=== PATIENT | male | born 1940 | race Caucasian/White ===

== ENCOUNTER 2016-08-26 16:00 | Outpatient (CLI) | payer MEDICARE, BC | END 2016-08-26 16:01 | disposition home or self-care (01) | DX: R31.9 Hematuria, unspecified (principal) ==

== ENCOUNTER 2017-04-14 15:43 | Outpatient (CLI) | payer MEDICARE, BC ==
--- NOTE | 2017-04-15 10:39 | CT Report ---
CT BRAIN WITHOUT CONTRAST: 04/14/2017 CLINICAL INDICATION: Dementia, history of subdural hematoma. COMPARISON: 11/14/2015 TECHNIQUE: Axial CT images of the brain were obtained without intravenous contrast. In accordance with CT protocol optimization, one or more of the following dose reduction techniques w ere utilized for this exam: automated exposure control, adjustment of mA and/or KV based on patient size, or use of iterative reconstructive technique. FINDINGS: The ventricles and sulci demonstrate mild symmetric enlargement, compatible with atrophy. The basilar cisterns are patent. Previously seen right subdural hematoma has resolved. No new hemo rrhage, mass effect, or midline shift is present. There is mucosal thickening in ethmoid air cells a nd the sphenoid sinus, compatible with chronic sinusitis. IMPRESSION: ATROPHY. CHRONIC SINUSITIS. RESOLUTION OF PREVIOUSLY SEEN RIGHT SUBDURAL HEMATOMA. NO ACUTE HEMORRHAGE. JOB #: [id number] EXT JOB #:[id number]
== END 2017-04-14 15:44 | disposition home or self-care (01) ==
LOC: DI 15:43
PROVIDERS: ATTEND Family Medicine
DX: G31.9 Degenerative disease of nervous system, unspecified (principal); F02.80 Dementia in other diseases classified elsewhere, unspecified severity, without behavioral disturbance, psychotic disturbance, mood disturbance, and anxiety; J32.9 Chronic sinusitis, unspecified
CPT/HCPCS: 70450

== ENCOUNTER 2017-11-04 18:22 | Emergency (ER) | payer MEDICARE, BC ==
[2017-11-04 18:33] VITALS: BP 160/81
--- NOTE | 2017-11-04 18:43 | ED Physician Documentation ---
PD HPI UPPER EXT INJURY - Stated complaint Stated Complaint: RT HAND LAC - Chief complaint Chief Complaint: Laceration - History obtained from History obtained from: Patient - History of Present Illness Location: Right, Hand Type of injury: Other (He suffered a skin tear on part of the couch well getting up just prior to arrival. His tetanus is up-to-date.) Review of Systems Constitutional: reports: Reviewed and negative Cardiac: reports: Reviewed and negative Respiratory: reports: Reviewed and negative PD PAST MEDICAL HISTORY - Past Medical History Cardiovascular: High cholesterol : Benign prostate hypertrophy - Present Medications Home Medications: Ambulatory Orders Medication Instructions Recorded Confirmed Aspirin [Aspir 81] 81 mg PO DAILY 12/17/14 11/14/15 Simvastatin [Zocor] 10 mg PO DAILY 12/17/14 11/14/15 Tamsulosin [Flomax] 0.4 mg PO DAILY 12/17/14 11/14/15 - Allergies Allergies/Adverse Reactions: Allergies Allergy/AdvReac Type Severity Reaction Status Date / Time No Known Drug Allergies Allergy Verified 11/04/17 18:32 - Social History Does the pt smoke?: No Smoking Status: Never smoker Does the pt drink ETOH?: Yes Does the pt have substance abuse?: No - Immunizations Immunizations are current?: No Immunizations: TDAP >10years/unknown PD ED PE NORMAL - Vitals Vital signs reviewed: Yes - General General: Alert and oriented X 3, No acute distress - Extremities Extremities: Other (On the dorsum of the right hand just proximal to the Metacarpal heads there is a very shallow 3 cm skin tear without limited range of motion or neurovascular compromise) - Psych Psych: Normal mood, Normal affect Results - Vitals Vitals: Vital Signs - 24 hr 11/04/17 18:29 Temperature 36.6 C Heart Rate 59 L Respiratory 17 Rate Blood Pressure 160/81 H O2 Saturation 99 Oxygen O2 Source Room air Procedures - Laceration (location) Right hand Length in cm: 3 Wound type: Linear, Flap, Superficial Wound Preparation: Irrigated copiously NS Skin layer closure: Steri strips Other: Tetanus UTD Complexity: Simple Departure - Departure Disposition: 01 Home, Self Care Clinical Impression: Skin tear of right hand without complication Qualifiers: Encounter type: initial encounter Qualified Code(s): S61.411A - Laceration without foreign body of right hand, initial encounter Condition: Good Record reviewed to determine appropriate education?: Yes Instructions: ED Laceration Hand Comments: Your blood pressure was elevated today on check into the emergency department. This does not mean that you have hypertension, it is a common phenomenon to come to the emergency department and have elevated blood pressure. I recommend that you see your primary care physician within the week to have it rechecked when you are feeling better.
== END 2017-11-04 18:51 | disposition home or self-care (01) ==
LOC: ED 18:22
DX: S61.411A Laceration without foreign body of right hand, initial encounter (principal); W45.8XXA Other foreign body or object entering through skin, initial encounter; R03.0 Elevated blood-pressure reading, without diagnosis of hypertension; E78.00 Pure hypercholesterolemia, unspecified; Z79.82 Long term (current) use of aspirin
CPT/HCPCS: 99282; 99283

== ENCOUNTER 2018-08-24 12:05 | Outpatient (CLI) | payer MEDICARE, BC ==
--- NOTE | 2018-08-24 14:21 | XRAY Report ---
Reason: ACUTE BRONCHITIS Procedure Date: 08/24/2018 Accession Number: [id number] / [id number] Procedure: WCP - Chest 2 View X-Ray CPT Code: 95204 FULL RESULT: EXAM: CHEST RADIOGRAPHY EXAM DATE: 08/24/2018 12:19 PM. CLINICAL HISTORY: Acute bronchitis. COMPARISON: None. TECHNIQUE: 2 views. FINDINGS: Lungs/Pleura: No focal opacities evident. No pleural effusion. No pneumothorax. High lung volumes with flattened diaphragms Mediastinum: Heart and mediastinal contours are unremarkable. Other: Old right-sided rib fractures are noted. IMPRESSION: No pneumonia. Likely COPD. RADIA
== END 2018-08-24 12:06 | disposition home or self-care (01) ==
LOC: DI.WCP 12:05
PROVIDERS: ATTEND Family Medicine
DX: J20.9 Acute bronchitis, unspecified (principal)
CPT/HCPCS: 71046

== ENCOUNTER 2019-11-20 10:06 | Emergency (ER) | payer MEDICARE, BC ==
--- NOTE | 2019-11-20 12:09 | ED Physician Documentation ---
PD HPI Fall - Stated complaint Stated Complaint: GLF - Chief complaint Chief Complaint: Trauma Hd/Nk - History obtained from History obtained from: Patient, Family - History of Present Illness Mechanism of injury: Tripped (he says he tripped on curb stone and fell forward, catching self on hands and knees. Denies injury to head/chest/abd. No LOC nor headache. No anticoagulants. Has multiple lacs/abrasions on fingertips and left forearm.) Fall distance: Standing position Where injury occurred: Street Timing - onset: Today Injury(ies) location: Left Uppper Extremity, Right Hand, Left Hand. No: Head, Chest, Abdomen Quality of pain: Aching Associated symptoms: No: LOC, AMS, Amnesia, Weakness, Dyspnea Worsens with: Palpation. No: Movement Contributing factors: No: Anticoagulated, Intoxicated Review of Systems Constitutional: denies: Fever Nose: denies: Rhinorrhea / runny nose, Congestion Throat: denies: Sore throat Respiratory: denies: Cough GI: denies: Vomiting, Diarrhea Skin: reports: Abrasion (s), Laceration (s). denies: Rash Neurologic: reports: Confused (chronic from some dementia). denies: Focal weakness, Numbness, Altered mental status, Headache, Head injury PD PAST MEDICAL HISTORY - Past Medical History Cardiovascular: High cholesterol Neuro: Dementia : Benign prostate hypertrophy - Present Medications Home Medications: Ambulatory Orders Medication Instructions Recorded Confirmed Aspirin [Aspir 81] 81 mg PO DAILY 12/17/14 11/14/15 Simvastatin [Zocor] 10 mg PO DAILY 12/17/14 11/14/15 Tamsulosin [Flomax] 0.4 mg PO DAILY 12/17/14 11/14/15 - Allergies Allergies/Adverse Reactions: Allergies Allergy/AdvReac Type Severity Reaction Status Date / Time No Known Drug Allergies Allergy Verified 11/20/19 10:10 - Social History Does the pt smoke?: No Smoking Status: Never smoker Does the pt drink ETOH?: Yes Does the pt have substance abuse?: No - Immunizations Immunizations are current?: No Immunizations: TDAP >10years/unknown PD ED PE NORMAL - Vitals Vital signs reviewed: Yes - General General: Alert and oriented X 3, Well developed/nourished, Other (holding out fingertips to not palpate on any of them. ) - HEENT HEENT: Atraumatic, PERRL, Moist mucous membranes - Neck Neck: Supple, no meningeal sign, No bony TTP, No adenopathy - Cardiac Cardiac: RRR, No murmur - Respiratory Respiratory: Clear bilaterally - Abdomen Abdomen: Soft, Non tender - Back Back: No CVA TTP, No spinal TTP - Derm Derm: Normal color, Warm and dry - Extremities Extremities: Other (left lateral elbow and ulnar side forearm with deep abrasion/thin avulsions with skin missing. Then most all the fingertips have either contusions with some bruising or thin partial thickness skin flaps, not involving nailbeds. No FB nor dirt noted in them. Minimal oozing blood. Good ROM of the fingers with flex/ext at IP joints without deformity. No noted bony deformities.) - Neuro Neuro: No motor deficit, No sensory deficit Results - Vitals Vitals: Vital Signs - 24 hr 11/20/19 11/20/19 10:11 13:17 Temperature 36.7 C 36.8 C Heart Rate 74 70 Respiratory 18 16 Rate Blood Pressure 142/85 H 141/70 H O2 Saturation 95 96 Oxygen O2 Source Room air PD MEDICAL DECISION MAKING - ED course Complexity details: reviewed results (he did not feel he had any hand/finger fractures, so shareged decision is to defer xrays.), considered differential (multiple thin skin tears on right fingertips, left forearm and left elbow, left fingertip as well. All are thin skin with bruising, so not sutureable. Had nursing apply steri-strips and then dressing after cleansing. ), d/w patient Departure - Departure Disposition: 01 Home, Self Care Clinical Impression: Skin tear Accidental fall Qualifiers: Encounter type: initial encounter Qualified Code(s): W19.XXXA - Unspecified fall, initial encounter Condition: Stable Record reviewed to determine appropriate education?: Yes Instructions: ED Laceration Hand Follow-Up: Jose Boggs MD [Primary Care Provider] - Comments: Just good wound care of the wounds. I would leave the initial dressings on actually for a day or 2 and then start just gently cleaning with soap and water and applying Band-Aids or such. Dry dressing over the forearm skin tears with concern of a Band-Aid sticking too much to the skin. Tylenol if needed for pains. Recheck if signs of infections. Discharge Date/Time: 11/20/19 13:20
[2019-11-20 13:18] VITALS: BP 141/70
== END 2019-11-20 13:20 | disposition home or self-care (01) ==
LOC: ED 10:06
DX: S51.812A Laceration without foreign body of left forearm, initial encounter (principal); S51.012A Laceration without foreign body of left elbow, initial encounter; S61.219A Laceration without foreign body of unspecified finger without damage to nail, initial encounter; S60.419A Abrasion of unspecified finger, initial encounter; S60.00XA Contusion of unspecified finger without damage to nail, initial encounter; W01.0XXA Fall on same level from slipping, tripping and stumbling without subsequent striking against object, initial encounter; Y93.01 Activity, walking, marching and hiking; Y92.480 Sidewalk as the place of occurrence of the external cause; F03.90 Unspecified dementia, unspecified severity, without behavioral disturbance, psychotic disturbance, mood disturbance, and anxiety; Z79.82 Long term (current) use of aspirin
CPT/HCPCS: 99282; 99284

== ENCOUNTER 2020-06-13 08:00 | Outpatient (CLI) | payer MEDICARE, BC | END 2020-06-13 23:59 | disposition home or self-care (01) | LOC: LAB.WCP 08:00 | PROVIDERS: ATTEND Internal Medicine | DX: Z53.9 Procedure and treatment not carried out, unspecified reason (principal) ==

== ENCOUNTER 2020-07-02 09:14 | Outpatient (CLI) | payer MEDICARE, BC ==
--- NOTE | 2020-07-02 10:44 | MRI Report ---
PROCEDURE: Brain W/O INDICATIONS: SENILE DEMENTIA TECHNIQUE: Noncontrast axial T1 spin echo, axial T2 fast spin echo, sagittal and axial FLAIR, coronal T2 fast sp in echo, axial gradient echo, axial diffusion and ADC through the brain. COMPARISON: None. FINDINGS: Image quality: Excellent. CSF Spaces: Basal cisterns are patent. No extra-axial fluid collections. Ventricles are normal in size and shape. Brain: No intracranial masses or hemorrhage. Pham/white matter interface is normal. Moderate diffu se cerebral volume loss. Mild degree of patchy high FLAIR signal within the periventricular and subco rtical white matter. Brainstem appears normal. Diffusion-weighted images demonstrate no acute ischem ic insult. No chronic ischemic insults. Normal intravascular flow voids are present. Skull and face: Calvarium has normal marrow signal. Orbits appear normal. Sinuses: Mastoids are clear. Severe left maxillary sinus mucosal thickening which demonstrates an air -fluid level. Small right maxillary sinus retention cyst. Mild minimal mucosal thickening in the bila teral ethmoidal cells. IMPRESSION: 1. Volume loss and small vessel ischemic disease. 2. No acute process. No recent infarct. 3. Sinus disease. Reviewed by: Elizabeth Sanchez MD on 07/02/2020 10:43 AM PST Approved by: Elizabeth Sanchez MD on 07/02/2020 10:43 AM PST Station ID: [id number]
== END 2020-07-02 09:15 | disposition home or self-care (01) ==
LOC: DI 09:14
PROVIDERS: ATTEND Internal Medicine
DX: I67.82 Cerebral ischemia (principal); J34.1 Cyst and mucocele of nose and nasal sinus; J32.2 Chronic ethmoidal sinusitis; J32.0 Chronic maxillary sinusitis
CPT/HCPCS: 70551

== ENCOUNTER 2020-07-12 12:26 | Outpatient (CLI) | payer MEDICARE, BC ==
--- NOTE | 2020-07-12 16:40 | CARDIAC PROCEDURE NOTE ---
DATE OF SERVICE: 07/12/2020 Physician: Elinor Barry MD, [facility] INDICATION: Atypical chest pain. CARDIAC RISK FACTORS: Advanced age, male gender. PROCEDURE: After signing informed consent, the patient underwent a Mark- protocol treadmill stress test with nuclear myocardial perfusion imaging. RESTING HEART RATE: 55. PEAK HEART RATE: 136 (97% predicted maximum heart rate for age). RESTING BLOOD PRESSURE: 136/80. PEAK BLOOD PRESSURE: 171/92. The patient exercised for 3 minutes and 47 seconds on a Mark-protocol treadmill stress test. He achieved a peak heart rate of 136 (during PSVT), which is 97% PMHR and 5.56 METs. The patient developed mild to moderate shortness of breath and described fatigue and the exercise was stopped. The patient had no chest pain during this test. Oxygen saturation was 97%-98% on room air throughout the test. RESTING EKG: Sinus bradycardia, IVCD, early R/S transition, low voltage in the limb leads. EKG AT PEAK: Rare PVCs, frequent PACs, 3-4 beat runs of SVT. There was excessive baseline artifact making ST-segment and T-wave interpretation difficult in immediate recovery. After 27 seconds to 1 minute of recovery, the EKG showed [address] segment depressions in leads II, III, aVF, and V3 through V6. SUMMARY: 1. Abnormal resting EKG. 2. Fair to poor exercise tolerance. 3. No chest pain occurred during exercise. 4. Nonspecific EKG changes occurred with exercise. 5. Frequent PAC's and short runs of SVT at rates of 130-140 were seen at peak and after exercise. 6. Nuclear images were reported separately and showed: Small, reversible perfusion defect in the inferior septum. IMPRESSION: Abnormal stress test. RECOMMENDATIONS: 1. Consider Holter monitor for evaluation of arrhythmias. 2. Cardiology referral, and consideration for coronary angio. 3. Start 1 aspirin daily. Manage lipids if necessary. 4. Also consider evaluation for GERD, given that his symptoms occur after dinner as he is going to bed. cc: Alan Hurtado MD TD: 07/12/2020 16:22 MTDD
--- NOTE | 2020-07-12 17:25 | Nuclear Medicine Report ---
PROCEDURE: Rest and exercise myocardial perfusion SPECT with gated imaging and ejection fraction INDICATIONS: CHEMA - CHEST DISCOMFORT RADIOPHARMACEUTICAL: 17.8 mCi Tc-99m Myoview IV at rest and 48.2 mCi Tc-99m Myoview IV at peak exerc ise. [id number] was performed. TECHNIQUE: Radiopharmaceutical was injected at peak stress test, and also at rest. SPECT images wer e obtained. SPECT myocardial perfusion images were displayed in short axis, horizontal long axis, an d vertical long axis views. Gated images were reviewed using Auto[employer] software. COMPARISON: None available. FINDINGS: Raw data: There is good myocardial labeling by radiotracer. No significant motion artifacts. Lung- to-heart ratio is 0.26 (normal is less than 0.38 for tetrafosmin tracer). Left ventricle function: Gated images demonstrate normal left ventricle wall thickening. No segment al wall motion abnormality. No transient ischemic dilation; TID is 0.80 (normal less than 1.3). The left ventricle resting end-diastolic volume is normal. Left ventricle stress ejection fraction is g reater than 70%; normal values are above 45%. Myocardial perfusion: There is a small, mild, reversible perfusion defect in the inferior septum mason picious for myocardial ischemia. IMPRESSION: 1. Probably abnormal myocardial perfusion images. There is a small, mild, reversible perfusion defect in the anterior septum, suspicious for myocardial ischemia. 2. Normal left ventricular volume and systolic function. 3. Please correlate with stress EKG report. PQRS ATTESTATIONS: Measure 322 - Is this imaging test primarily performed on a low-risk surgery patient for preoperative evaluation within 30 days preceding their low-risk non-cardiac surgery? Low-risk surgery is defined as cardiac or myocardial infarction less than 1%, including (but not limited to) endoscopic pr ocedures, superficial procedures, cataract surgery, and excisional breast surgery: Answer: No Measure 323 - Is this imaging test performed primarily for the monitoring of an asymptomatic patient who had percutaneous coronary intervention on the visit date or within 2 years of the visit date? An swer: No Measure 324 - Is this imaging test performed primarily for the initial detection and risk assessment on an asymptomatic, low coronary heart disease patient? Low CHD risk definition = clinicians should consider the maximum number of available patient factors used to estimate risk based on Mcclure (A TP III criteria), typically age, gender, diabetes, smoking status, and use of blood pressure medicati on, and integrate age appropriate estimates for missing elements, such as LDL or standard blood press ure. Answer: No Reviewed by: Karen Souza MD on 07/12/2020 5:24 PM PST Approved by: Karen Souza MD on 07/12/2020 5:24 PM PST Station ID: [id number]
== END 2020-07-12 12:27 | disposition home or self-care (01) ==
LOC: DI 12:26
PROVIDERS: ATTEND Internal Medicine
DX: R07.89 Other chest pain (principal); R94.31 Abnormal electrocardiogram [ECG] [EKG]
CPT/HCPCS: 78452; 93017; A9500

== ENCOUNTER 2021-08-16 09:59 | Outpatient (CLI) | payer MEDICARE, BC ==
[2021-08-16 13:50] LABS: BASOPHILS # (AUTO) 0.1 10^3/uL (0.0-0.1); BASOPHILS % (AUTO) 0.8 %; EOSINOPHILS # (AUTO) 0.2 10^3/uL (0.0-0.7); EOSINOPHILS % (AUTO) 2.7 %; HCT - HEMATOCRIT 42.9 % (42.0-52.0); HGB - HEMOGLOBIN 14.1 g/dL (14.0-18.0); LYMPHOCYTES # (AUTO) 2.1 10^3/uL (1.5-3.5); LYMPHOCYTES % (AUTO) 28.8 %; MEAN CORPUSCULAR HEMOGLOBIN 32.9 pg (27.0-31.0); MEAN CORPUSCULAR HGB CONC 32.9 g/dL (32.0-36.0); MEAN CORPUSCULAR VOLUME 100.2 fL (80.0-94.0); MEAN PLATELET VOLUME 10.7 fL (7.4-11.4); MONOCYTES # (AUTO) 0.7 10^3/uL (0.0-1.0); MONOCYTES % (AUTO) 9.6 %; NEUTROPHILS # (AUTO) 4.2 10^3/uL (1.5-6.6); NEUTROPHILS % (AUTO) 57.7 %; PLT - PLATELET COUNT 216 10^3/uL (130-450); RED BLOOD COUNT 4.28 10^6/uL (4.70-6.10); RED CELL DISTRIBUTION WIDTH 13.3 % (12.0-15.0); WHITE BLOOD COUNT 7.3 x10^3/uL (4.8-10.8)
[2021-08-16 14:24] LABS: BILIRUBIN,URINE NEGATIVE (NEGATIVE); GLUCOSE, URINE (UA) NEGATIVE (NEGATIVE); KETONES,URINE (UA) NEGATIVE (NEGATIVE); LEUKOCYTE ESTERASE, URINE NEGATIVE (NEGATIVE); NITRITE,URINE NEGATIVE (NEGATIVE); OCCULT BLOOD,URINE NEGATIVE (NEGATIVE); PROTEIN,URINE NEGATIVE (NEGATIVE); UROBILINOGEN,URINE 0.2 (NORMAL) E.U./dL (NORMAL)
[2021-08-16 14:29] LABS: ALBUMIN 4.2 g/dL (3.2-5.5); ALBUMIN/GLOBULIN RATIO 1.3 (1.0-2.2); BILIRUBIN,TOTAL 1.3 mg/dL (0.2-1.0); CALCIUM 9.3 mg/dL (8.5-10.3); CREATININE 1.1 mg/dL (0.6-1.2); POTASSIUM 4.4 mmol/L (3.5-5.0); TOTAL PROTEIN 7.4 g/dL (6.7-8.2)
[2021-08-16 14:34] LABS: THYROID STIMULATING HORMONE 3.26 uIU/mL (0.34-5.60)
[2021-08-16 14:46] LABS: BACTERIA,URINE None Seen /HPF (None Seen); CLARITY,URINE CLEAR (CLEAR); RBC,URINE None Seen /HPF (0-5); SQUAMOUS EPITHELIAL CELL,UR RARE Squamous (<= Few); WBC,URINE 0-3 /HPF (0-3)
== END 2021-08-16 10:00 | disposition home or self-care (01) ==
LOC: LAB.N 09:59
PROVIDERS: ATTEND Internal Medicine
DX: F01.51 Vascular dementia, unspecified severity, with behavioral disturbance (principal); N40.0 Benign prostatic hyperplasia without lower urinary tract symptoms; E78.5 Hyperlipidemia, unspecified
CPT/HCPCS: 36415; 80053; 81001; 84443; 85025; 87086

== ENCOUNTER 2021-09-15 15:42 | Outpatient (CLI) | payer MEDICARE, BC ==
[2021-09-15 18:09] LABS: BASOPHILS # (AUTO) 0.1 10^3/uL (0.0-0.1); BILIRUBIN,URINE NEGATIVE (NEGATIVE); EOSINOPHILS # (AUTO) 0.2 10^3/uL (0.0-0.7); EOSINOPHILS % (AUTO) 3.2 %; GLUCOSE, URINE (UA) NEGATIVE (NEGATIVE); HCT - HEMATOCRIT 39.2 % (42.0-52.0); KETONES,URINE (UA) NEGATIVE (NEGATIVE); LEUKOCYTE ESTERASE, URINE NEGATIVE (NEGATIVE); LYMPHOCYTES # (AUTO) 1.7 10^3/uL (1.5-3.5); LYMPHOCYTES % (AUTO) 28.7 %; MEAN CORPUSCULAR HEMOGLOBIN 32.6 pg (27.0-31.0); MEAN CORPUSCULAR HGB CONC 33.2 g/dL (32.0-36.0); MEAN CORPUSCULAR VOLUME 98.2 fL (80.0-94.0); MEAN PLATELET VOLUME 10.7 fL (7.4-11.4); MONOCYTES # (AUTO) 0.6 10^3/uL (0.0-1.0); MONOCYTES % (AUTO) 10.8 %; NEUTROPHILS # (AUTO) 3.3 10^3/uL (1.5-6.6); NEUTROPHILS % (AUTO) 56.1 %; NITRITE,URINE NEGATIVE (NEGATIVE); OCCULT BLOOD,URINE NEGATIVE (NEGATIVE); PLT - PLATELET COUNT 193 10^3/uL (130-450); PROTEIN,URINE NEGATIVE (NEGATIVE); RED BLOOD COUNT 3.99 10^6/uL (4.70-6.10); RED CELL DISTRIBUTION WIDTH 13.2 % (12.0-15.0); UROBILINOGEN,URINE 0.2 (NORMAL) E.U./dL (NORMAL); WHITE BLOOD COUNT 5.9 x10^3/uL (4.8-10.8)
[2021-09-15 18:17] LABS: CLARITY,URINE CLEAR (CLEAR)
[2021-09-15 18:43] LABS: ALBUMIN 4.3 g/dL (3.2-5.5); ALBUMIN/GLOBULIN RATIO 1.5 (1.0-2.2); BILIRUBIN,TOTAL 0.9 mg/dL (0.2-1.0); CALCIUM 9.2 mg/dL (8.5-10.3); CREATININE 0.8 mg/dL (0.6-1.2); POTASSIUM 4.4 mmol/L (3.5-5.0); TOTAL PROTEIN 7.1 g/dL (6.7-8.2)
[2021-09-15 18:59] LABS: THYROID STIMULATING HORMONE 3.21 uIU/mL (0.34-5.60)
[2021-09-15 19:21] LABS: BACTERIA,URINE None Seen /HPF (None Seen); RBC,URINE 0-5 /HPF (0-5); SQUAMOUS EPITHELIAL CELL,UR NONE SEEN (<= Few); WBC,URINE 0-3 /HPF (0-3)
== END 2021-09-15 15:43 | disposition home or self-care (01) ==
LOC: LAB.N 15:42
PROVIDERS: ATTEND Nurse Practitioner
DX: R53.83 Other fatigue (principal); R06.02 Shortness of breath
CPT/HCPCS: 36415; 80053; 81001; 83880; 84443; 85025; 85379; 87086

== ENCOUNTER 2021-09-15 19:00 | Emergency (ER) | payer MEDICARE, BC ==
[2021-09-15 21:07] LABS: INR 1.1 (0.8-1.2); PT - PROTHROMBIN TIME 11.9 secs (9.9-12.6)
--- NOTE | 2021-09-15 21:39 | ED Physician Documentation ---
History of Present Illness - Stated complaint Stated Complaint: SWELLING IN STOMACH AND LEGS - Chief complaint Chief Complaint: General - History obtained from History obtained from: Patient, Family (Patient's ) - Additonal information Additional information: Patient with a history of dementia presenting for evaluation of abnormal outpatient lab, D-dimer. Patient was recently seen In the outpatient setting for 3 day history of lower extremity swelling and abdominal bloating. Labs were done today which included a D-dimer which was noted to be elevated. Patient received a phone call instructing him to go to the emergency department for evaluation of the elevated D-dimer. Patient denies fever, cough, chest pain, difficulty breathing, pain.He is unsure of how long he has had the leg swelling but his has noticed it for the last several days.Denies any recent trauma or injury. Patient reports normal urination. Review of Systems Constitutional: denies: Fever Nose: denies: Rhinorrhea / runny nose, Congestion Cardiac: denies: Chest pain / pressure Respiratory: denies: Dyspnea, Cough GI: reports: Abdominal Swelling. denies: Abdominal Pain, Nausea, Vomiting : denies: Dysuria, Unable to Void Musculoskeletal: reports: Extremity swelling Neurologic: denies: Generalized weakness PD PAST MEDICAL HISTORY - Past Medical History Past Medical History: Yes Cardiovascular: High cholesterol Respiratory: None Neuro: Dementia Endocrine/Autoimmune: None GI: None : Benign prostate hypertrophy HEENT: None Psych: None Musculoskeletal: None Derm: None - Past Surgical History Past Surgical History: Yes General: Other - Present Medications Home Medications: Ambulatory Orders Medication Instructions Recorded Confirmed Aspirin [Aspir 81] 81 mg PO DAILY 12/17/14 09/15/21 Risperidone [Risperdal] 0.5 mg PO DAILY 09/15/21 09/15/21 Risperidone [Risperdal] 2 mg PO HS 09/15/21 09/15/21 - Allergies Allergies/Adverse Reactions: Allergies Allergy/AdvReac Type Severity Reaction Status Date / Time No Known Drug Allergies Allergy Verified 09/15/21 19:21 - Social History Does the pt smoke?: No Smoking Status: Never smoker Does the pt drink ETOH?: Yes Does the pt have substance abuse?: No - Immunizations Immunizations are current?: No Immunizations: TDAP >10years/unknown - POLST Patient has POLST: No PD ED PE NORMAL - General General: Alert and oriented X 3, No acute distress, Well developed/nourished - HEENT HEENT: Atraumatic, Moist mucous membranes - Neck Neck: Supple, no meningeal sign - Cardiac Cardiac: RRR, Strong equal pulses - Respiratory Respiratory: No respiratory distress, Clear bilaterally - Abdomen Abdomen: Normal bowel sounds, Soft, Non tender, Non distended - Derm Derm: Normal color, Warm and dry - Extremities Extremities: No tenderness to palpate, Other (Bilateral lower extremity edema, Symmetric, palpable distal pulses). No: No edema - Neuro Neuro: No motor deficit, No sensory deficit, Normal speech - Psych Psych: Normal mood, Normal affect Results - Vitals Vitals: Vital Signs - 24 hr 09/15/21 09/15/21 09/15/21 19:15 20:28 21:20 Temperature 36.1 C L Heart Rate 73 71 67 Respiratory 16 19 20 Rate Blood Pressure 153/60 H 132/69 H 135/72 H O2 Saturation 99 100 100 09/15/21 09/15/21 09/15/21 21:46 22:06 22:27 Temperature Heart Rate 66 70 Respiratory 19 19 20 Rate Blood Pressure 123/69 119/72 O2 Saturation 100 99 100 09/15/21 22:37 Temperature Heart Rate Respiratory 18 Rate Blood Pressure O2 Saturation Oxygen O2 Source Room air - EKG (time done) 2144 Rate: Rate (enter#) (65) Rhythm: NSR Other comments: Other comments (Motion artifact in several leads affects interpretation But do not see acute ischemic changes) Computer interpretation: Disagree with computer (Machine read as ACUTE PR - likely from motion artifact ) - Labs Labs: Laboratory Tests 09/15/21 09/15/21 20:52 20:52 PT 11.9 INR 1.1 Troponin I High Sens 5.5 PD MEDICAL DECISION MAKING - ED course ED course: Patient sent into the emergency department for evaluation of abnormal D-dimer in the setting of recent lower extremity swelling.Patient's lower extremity swelling is symmetric, does not appear to be cellulitic.Normal distal perfusion. Ultrasound obtained which was negative for DVT. Outpatient labs from earlier today were also reviewed which included unremarkable BNP and electrolytes and renal function. Patient denies chest pain or difficulty breathing. PatientHas no respiratory symptoms, Has normal oxygenation and heart rate. I do not think he has symptoms to suggest a pulmonary embolism.His D-dimer is Likely elevated due to other causes. His EKG did not show evidence of acute ischemic changes. Patient's also stated that his abdomen appeared distended. However on exam it was relatively soft and did not Have tenderness. I do not think he needs a paracentesis or abdominal imaging.Patient was advised to follow-up with his primary care doctor.Discussed options for conservative management of the lower extremity edema. Reviewed return precautions with patient and his . Departure - Departure Disposition: 01 Home, Self Care Clinical Impression: Swelling of both lower extremities Condition: Stable Instructions: ED Edema Legs Bilateral Comments: Please follow-up with your primary care doctor regarding the swelling in your legs. You can try compression stockings or elevating the legs to help with the swelling.Your doctor may also start you on a medication to help Remove fluid from your legs. The ultrasound of your legs did not show a blood clot.Please return to the emergency department if you develop pain somewhere, difficulty breathing, Worsening swelling or with any concerns. Discharge Date/Time: 09/15/21 22:42
--- NOTE | 2021-09-15 22:04 | Ultrasound Report ---
PROCEDURE: Duplex Ext Veins Bilateral INDICATIONS: Bilateral lower extremity edema. TECHNIQUE: Real-time imaging, as well as color and pulse Doppler interrogation, were performed of the deep veins of both legs from the inguinal ligament to the popliteal fossa. COMPARISON: None FINDINGS: The deep veins of the right and left lower extremities are normally compressible, and free of intraluminal thrombus. Color and pulse Doppler demonstrate normal phasic intravascular flow in t he deep veins of the right and left lower extremities. There is normal augmentation response to dist al compression maneuver in the deep veins of the right and left lower extremities. Large, bilobed right popliteal cyst. IMPRESSION: No evidence of deep vein thrombosis involving the right and left lower extremities. Reviewed by: Gia Celis MD, PhD on 09/15/2021 10:03 PM PDT Approved by: Gia Celis MD, PhD on 09/15/2021 10:03 PM PDT Station ID: [id number]
[2021-09-15 22:27] VITALS: BP 119/72
== END 2021-09-15 22:42 | disposition home or self-care (01) ==
LOC: ED 19:00
DX: R06.00 Dyspnea, unspecified (principal); R53.83 Other fatigue; R06.02 Shortness of breath
CPT/HCPCS: 36415; 80053; 81001; 83880; 84443; 84484; 85025; 85379; 85610; 87086; 93005; 93970; 99282; 99284

== ENCOUNTER 2023-06-05 06:01 | Outpatient (CLI) | payer MEDICARE, BC | END 2023-06-05 23:59 | disposition critical access hospital (66) | LOC: EMS 06:01 | DX: S01.81XA Laceration without foreign body of other part of head, initial encounter (principal); W19.XXXA Unspecified fall, initial encounter; Y92.092 Bedroom in other non-institutional residence as the place of occurrence of the external cause | CPT/HCPCS: A0425; A0429 ==

== ENCOUNTER 2023-06-05 06:19 | Emergency (ER) | payer MEDICARE, BC ==
--- NOTE | 2023-06-05 07:11 | ED Physician Documentation ---
PD HPI HEAD INJURY - Stated complaint Stated Complaint: FALL/FOREHEAD LAC - Chief complaint Chief Complaint: Trauma Hd/Nk - History obtained from History obtained from: EMS, Caregiver - History of Present Illness Mechanism of head injury: Fell (unwitnessed fall but found by caregivers on laurence with forehead laceration. Unknown if LOC but pt awake and answering questions on first assessment by caregivers. No vomiting. Denies general headache.) Where head injury occurred: Other (SNF caregivers) Timing - onset: How many hours ago (within the past couple of hours), Today Location of injury: Front (left forehead) Quality of pain: Aching Associated symptoms: No: AMS, Nausea / vomiting, Neck pain Symptoms worsen with: Palpation Contributing factors: No: Anticoagulated Similar symptoms before: No diagnosis (family members state patient has had some falls rcently due to dementia and his poor memory of not being able to get up well on own and needing to ask for help.) Recently seen: Not recently seen Review of Systems Unable to obtain: Dementia, Other (family mmebers give some info) Respiratory: denies: Dyspnea, Cough GI: denies: Vomiting, Diarrhea Neurologic: reports: Generalized weakness PD PAST MEDICAL HISTORY - Past Medical History Cardiovascular: High cholesterol Respiratory: None Neuro: Dementia Endocrine/Autoimmune: None GI: None : Benign prostate hypertrophy HEENT: None Psych: None Musculoskeletal: None Derm: None - Past Surgical History Past Surgical History: Yes General: Other - Present Medications Home Medications: Ambulatory Orders Medication Instructions Recorded Confirmed Acetaminophen [Acetaminophen Extra 500 mg PO BID 06/05/23 06/05/23 Strength] Acetaminophen [Tylenol] 500 mg PO Q4HR PRN MDD 3000 06/05/23 06/05/23 Citalopram Hydrobromide [Celexa] 20 mg PO DAILY 06/05/23 06/05/23 Furosemide [Lasix] 40 mg PO DAILY 06/05/23 06/05/23 Ketoconazole [Nizoral A-D] 125 ml TP UD 06/05/23 06/05/23 LORazepam [Ativan] 0.5 mg PO Q8HR PRN 06/05/23 06/05/23 Nitroglycerin [Nitrostat] 0.4 mg SL [id number] PRN 06/05/23 06/05/23 QUEtiapine [SEROquel] 25 mg PO BID 06/05/23 06/05/23 guaiFENesin [Guaifenesin ER] 600 mg PO Q8HR PRN 06/05/23 06/05/23 metroNIDAZOLE 0.75% GEL [Flagyl 1 applic TOP BID 06/05/23 06/05/23 Gel] - Allergies Allergies/Adverse Reactions: Allergies Allergy/AdvReac Type Severity Reaction Status Date / Time No Known Drug Allergies Allergy Verified 06/05/23 06:29 - Social History Does the pt smoke?: No Smoking Status: Never smoker Does the pt drink ETOH?: Yes Does the pt have substance abuse?: No - Immunizations Immunizations are current?: No Immunizations: TDAP >10years/unknown - POLST Patient has POLST: No PD ED PE NORMAL - Vitals Vital signs reviewed: Yes - General General: No acute distress, Well developed/nourished, Other (oriented to person and place, not time and does not remember circumstances of his fall. ) - HEENT HEENT: PERRL, EOMI, Other (left side forehead with 2 lacerations next to each ofther with crisp edges and mild bleeeding. No FBs noted. ) - Neck Neck: Supple, no meningeal sign, No bony TTP, No adenopathy - Cardiac Cardiac: RRR - Respiratory Respiratory: Clear bilaterally, Other (no chestwall tenderness) - Abdomen Abdomen: Soft, Non tender - Derm Derm: Normal color, Warm and dry - Extremities Extremities: Normal ROM s pain, Other (some tenderness with small abrasion left elbow. Good ROM and no effusion nor bony tenderness. ) - Neuro Neuro: No motor deficit, No sensory deficit, Normal speech Results - Vitals Vitals: Vital Signs - 24 hr 06/05/23 06/05/23 06/05/23 06:20 06:29 07:08 Temperature 97.0 C H Heart Rate 68 87 90 Respiratory 18 14 28 H Rate Blood Pressure 144/75 H 119/78 126/89 H O2 Saturation 93 99 99 06/05/23 06/05/23 06/05/23 07:29 07:45 08:37 Temperature 36.1 C L Heart Rate 83 83 81 Respiratory 15 17 16 Rate Blood Pressure 117/87 H 124/85 H 115/76 O2 Saturation 96 96 97 Oxygen O2 Source Room air - Rads (name of study) head CT Relevant Findings:: Prelim report reviewed (no ICH nor acute findings), EMP independent interpretation of test cervical CT Relevant Findings:: Prelim report reviewed (arthitic changes, no fractures), EMP independent interpretation of test Procedures - Laceration (location) forehea Wound type: Linear, Into subcut fat, Clean Neurovascular status: Sensory intact Anesthesia: Lidocaine 1% with epi Wound preparation: Irrigated copiously NS, Wound explored, To the base Skin layer closure: Nylon, Running, Size #-0 - enter number (5), Sutures - enter # (17) Other: Patient tolerated well, No complications, Dressing applied, Tetanus UTD PD Medical Decision Making - ED course Complexity details: reviewed results (head CT and neck CT without acute injuries. Arthritic changes noted. ), considered differential, d/w patient ED course: he was found on floor near bed with lacerations to forehead but not displaying oconcussive symptoms. Not on anticoagulants. However, he had direct impact and cannot be clear by guideliens such as NEXUS head rules. CT head and neck done without acute findings. Forehead lac sutured. Family members present and state pt is at baseline level of conversation and interaction. Departure - Departure Disposition: 01 Home, Self Care Clinical Impression: Fall, accidental Qualifiers: Encounter type: initial encounter Qualified Code(s): W19.XXXA - Unspecified fall, initial encounter Forehead laceration Qualifiers: Encounter type: initial encounter Qualified Code(s): S01.81XA - Laceration without foreign body of other part of head, initial encounter Dementia Qualifiers: Dementia type: unspecified type Dementia severity: moderate Dementia behavioral or psychological symptom: without behavioral, psychotic, or mood disturbance or anxiety Qualified Code(s): F03.B0 - Unspecified dementia, moderate, without behavioral disturbance, psychotic disturbance, mood disturbance, and anxiety Condition: Stable Record reviewed to determine appropriate education?: Yes Instructions: ED Laceration Facial Sutr Tape Follow-Up: PATRICIO MEEK ARNP [Primary Care Provider] - Comments: It is okay to wash and shower. Clean off the wound twice a day with soap and water, or peroxide and water. Apply some antibiotic ointment to it to keep it moist. Also to watch for signs of infection such as purulence, redness or i ncreasing pain. Return to your primary care or the ER at the specified time for suture removal. Suture removal 7 to 10 days. Continue usual medications. Your CT scan of your head and neck did not show any signs of bleeding intracranially and no signs of fractures of the neck. Activity as normal is okay. Forms: PCP List Discharge Date/Time: 06/05/23 08:37
[2023-06-05] MEDS ORDERED: LIDOCAINE 1%-EPI 1:100000 20 ML MDV SUBQ STA (07:35)
[2023-06-05] MEDS ORDERED: ACETAMINOPHEN 325 MG TABLET PO STA (08:13)
[2023-06-05 08:49] VITALS: BP 115/76; O2SAT 97
--- NOTE | 2023-06-05 09:20 | CT Report ---
PROCEDURE: CERVICAL SPINE WO INDICATIONS: fall, head injury, dementia TECHNIQUE: Noncontrast 3 mm thick sections acquired from the skull base to the T4 level. Sagittal and coronal r eformats were then constructed. For radiation dose reduction, the following was used: automated exp osure control, adjustment of mA and/or kV according to patient size. COMPARISON: None. FINDINGS: Image quality: Excellent. Bones: No fractures or dislocations. Visualized superior ribs are intact. Soft tissues: Prevertebral soft tissues are normal in thickness. No paravertebral hematomas. No ap ical pneumothoraces. IMPRESSION: No acute, displaced fracture or traumatic subluxation. Reviewed by: Rasta Louise on 06/05/2023 8:19 AM [facility] Approved by: Rasta Louise on 06/05/2023 8:19 AM [facility] Station ID: [id number]
--- NOTE | 2023-06-05 09:23 | CT Report ---
PROCEDURE: HEAD WO INDICATIONS: fall, head injury TECHNIQUE: Noncontrast 4.5 mm thick angled axial sections acquired from the foramen magnum to the vertex. For r adiation dose reduction, the following was used: automated exposure control, adjustment of mA and/or kV according to patient size. COMPARISON: None. FINDINGS: Image quality: Excellent. CSF spaces: Basal cisterns are patent. No extra-axial fluid collections. Ventricles are normal in size and shape. Brain: No midline shift. No intracranial masses or hemorrhage. Pham-white matter interface is norm al. Skull and face: Calvarium and visualized facial bones are intact, without suspicious lesions. Sinuses: Visualized sinuses and mastoids are clear. IMPRESSION: No acute intracranial pathology. Reviewed by: Rasta Louise on 06/05/2023 8:22 AM [facility] Approved by: Rasta Louise on 06/05/2023 8:22 AM [facility] Station ID: [id number]
== END 2023-06-05 08:37 | disposition home or self-care (01) ==
LOC: EDUNIT# → ED 06:19
DX: S01.81XA Laceration without foreign body of other part of head, initial encounter (principal); W19.XXXA Unspecified fall, initial encounter; Y92.129 Unspecified place in nursing home as the place of occurrence of the external cause; F03.B0 Unspecified dementia, moderate, without behavioral disturbance, psychotic disturbance, mood disturbance, and anxiety; E78.00 Pure hypercholesterolemia, unspecified; Z79.899 Other long term (current) drug therapy
CPT/HCPCS: 12013; 36415; 70450; 72125; 99283; 99284; A9270

== ENCOUNTER 2023-08-30 15:28 | Outpatient (CLI) | payer MEDICARE, BC, MEDICAID | END 2023-08-30 23:59 | disposition critical access hospital (66) | LOC: EMS 15:28 | DX: S51.812A Laceration without foreign body of left forearm, initial encounter (principal); Y04.2XXA Assault by strike against or bumped into by another person, initial encounter; Y92.099 Unspecified place in other non-institutional residence as the place of occurrence of the external cause | CPT/HCPCS: A0425; A0429 ==

== ENCOUNTER 2023-08-30 15:44 | Emergency (ER) | payer MEDICARE, BC, MEDICAID ==
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
[2023-08-30] MEDS: BUPIVACAINE 0.5% PF 10 ML VIAL SUBQ STA (16:06)
[2023-08-30 16:54] VITALS: BP 141/84; O2SAT 98
== END 2023-08-30 16:53 | disposition home or self-care (01) ==
LOC: EDUNIT# → ED 15:44
DX: S51.812A Laceration without foreign body of left forearm, initial encounter (principal); X58.XXXA Exposure to other specified factors, initial encounter; Y92.122 Bedroom in nursing home as the place of occurrence of the external cause; F03.90 Unspecified dementia, unspecified severity, without behavioral disturbance, psychotic disturbance, mood disturbance, and anxiety; E78.00 Pure hypercholesterolemia, unspecified; Z79.899 Other long term (current) drug therapy
CPT/HCPCS: 12002; 99283